=== PATIENT | male | born 1975 | race Two or more races ===

== ENCOUNTER 2019-11-24 14:27 | Emergency (ER) | payer MEDICAID ==
[~2019-11-24] VITALS: Ht 185.4 cm; Wt 117.9 kg
[2019-11-24 14:54] VITALS: Ht 185.4 cm; Wt 117.9 kg
[2019-11-24 15:30] LABS: BASOPHIL % 0.4 % (0-2); PLATELET COUNT 203 x10^3mcL (130-400); RED CELL DISTRIBUTION WIDTH 14.4 % (11.5-14.5)
[2019-11-24 15:34] LABS: CALCIUM 8.9 mg/dL (8.5-10.1); CARBON DIOXIDE 15.8 mmol/L (21-32); CHLORIDE SERUM 99 mmol/L (98-107); CREATININE SERUM 1.6 mg/dL (0.7-1.3); GFR1 52 mL/min; GLUCOSE SERUM 337 mg/dL (74-106); POTASSIUM SERUM 3.5 mmol/L (3.5-5.1); SODIUM SERUM 137 mmol/L (136-145)
[2019-11-24 15:38] LABS: ALBUMIN 3.5 g/dL (3.4-5.0); ALKALINE PHOSPHATASE 108 U/L (46-116); ALT/SGPT 30 U/L (16-63); AST/SGOT 29 U/L (15-37); BILIRUBIN TOTAL 0.44 mg/dL (0.20-1.00); TOTAL PROTEIN, SERUM 7.6 g/dL (6.4-8.2)
[2019-11-24 16:56] VITALS: BP 141/71
== END 2019-11-24 16:56 | disposition home or self-care (01) ==
LOC: ED 14:27 → EDBD 14:27 → ED 16:56
PROVIDERS: Emergency Medicine
DX: R56.9 Unspecified convulsions (principal); R51 Headache; E11.65 Type 2 diabetes mellitus with hyperglycemia; F10.10 Alcohol abuse, uncomplicated
CPT/HCPCS: 82962; G0480; J1630; J2250; J7030